=== PATIENT | male | born 1985 | race Caucasian/White ===

== ENCOUNTER 2017-07-17 13:44 | Emergency (ER) | payer OTHER ==
[~2017-07-17] VITALS: Ht 180.3 cm; Wt 85.3 kg
[2017-07-17 13:56] VITALS: BP 162/87
--- NOTE | 2017-07-17 14:00 | NUR ---
PT AMBULATED TO [facility] WITH STABLE GAIT
--- NOTE | 2017-07-17 14:10 | NUR ---
PT AMBULATED TO ER BED 04
--- NOTE | 2017-07-17 14:20 | NUR ---
PT. CAME INTO ED W/ C/O R LOWER BACK PAIN AND R LEG PAIN. PT. STATES , " I HAD THIS SCIATICA PAIN COME UP A WEEK AGO ITS GETTING WORSE, IT DOESNT LET ME SLEEP". 12/25 PAIN THAT IS BURNING AND RADIATES FROM R LOWER BACK TO R LEG X 1 WEEK. DENIES SOB, DENIES CP, AAOX4 , PT. DENIES N/V/D. Dawn CISNEROS NOTIFIED. WILL CONTINUE TO MONITOR
[2017-07-17] MEDS ORDERED: IBUPROFEN 600 MG TAB PO ONE (15:25)
[2017-07-17] MEDS ORDERED: HYDROcodone/APAP 5/325 MG 1 TAB TAB PO ONE (15:25)
[2017-07-17] MEDS ORDERED: IBUPROFEN 800 MG TAB ONE (15:32)
[2017-07-17 15:55] VITALS: BP 140/79
== END 2017-07-17 15:55 | disposition home or self-care (01) ==
LOC: MED 13:44
DX: M54.30 Sciatica, unspecified side (principal); Z91.013 Allergy to seafood
CPT/HCPCS: 99283